=== PATIENT | female | born 1955 | race Hispanic/Latino ===

== ENCOUNTER → 2022-05-17 | Outpatient (CLI) | payer MEDICARE | END | disposition home or self-care (01) | LOC: RAH 12:45 | PROVIDERS: ATTEND Nurse Practitioner | DX: M75.121 Complete rotator cuff tear or rupture of right shoulder, not specified as traumatic (principal); M89.011 Algoneurodystrophy, right shoulder; M12.811 Other specific arthropathies, not elsewhere classified, right shoulder | CPT/HCPCS: 73221 ==

== ENCOUNTER → 2024-02-25 | Outpatient (CLI) | payer MEDICARE | END | disposition home or self-care (01) | LOC: RAH 08:12 | PROVIDERS: ATTEND Internal Medicine | DX: M85.88 Other specified disorders of bone density and structure, other site (principal); M81.0 Age-related osteoporosis without current pathological fracture | CPT/HCPCS: 77080 ==